=== PATIENT | female | born 1975 | race Caucasian/White ===

== ENCOUNTER → 2016-07-25 | Outpatient (CLI) | payer OTHER ==
[2016-07-25 09:06] LABS: BLOOD UREA NITROGEN 26 mg/dL (7-18)
[2016-07-25 09:19] LABS: ASPARTATE AMINO TRANSFERASE 26 U/L (15-37)
== END | disposition home or self-care (01) ==
LOC: LAB 08:35
PROVIDERS: ATTEND Family Medicine
DX: E03.9 Hypothyroidism, unspecified (principal); E34.8 Other specified endocrine disorders; R79.9 Abnormal finding of blood chemistry, unspecified
CPT/HCPCS: 36415; 80053; 80061; 82306; 82627; 82670; 84144; 84402; 84439; 84443; 84481; 85025

== ENCOUNTER → 2017-09-05 | Outpatient (CLI) | payer OTHER | LOC: CFH 09-03 14:44 | PROVIDERS: ATTEND Internal Medicine | DX: Z12.31 Encounter for screening mammogram for malignant neoplasm of breast (principal) | CPT/HCPCS: 77063; 77067 ==

== ENCOUNTER 2018-09-25 14:45 | Outpatient (CLI) | payer OTHER | END 2018-09-25 23:59 | disposition home or self-care (01) | LOC: CFH 14:45 | PROVIDERS: ATTEND Obstetrics & Gynecology | DX: Z12.31 Encounter for screening mammogram for malignant neoplasm of breast (principal) | CPT/HCPCS: 77063; 77067 ==

== ENCOUNTER 2019-03-08 14:43 | Emergency (ER) | payer OTHER ==
[~2019-03-08] VITALS: Ht 162.6 cm; Wt 63.0 kg
[2019-03-08 14:58] VITALS: BP 120/74
[2019-03-08] MEDS ORDERED: NEOSPORIN OINT. PKT 1 PACKET ONE (15:29)
[2019-03-08] MEDS ORDERED: AMPICILLIN/SULBACTAM 3 GM in SODIUM CHLORIDE 0.9% 100 ML IV ONE (15:30)
== END 2019-03-08 16:44 ==
LOC: ED 16:24
DX: S00.87XA Other superficial bite of other part of head, initial encounter (principal); W54.0XXA Bitten by dog, initial encounter; Y93.89 Activity, other specified; Y92.098 Other place in other non-institutional residence as the place of occurrence of the external cause; Y99.8 Other external cause status
CPT/HCPCS: 96365; 99283; J0295; 96361

== ENCOUNTER 2019-03-19 13:23 | Outpatient (CLI) | payer OTHER | END 2019-03-19 23:59 | disposition home or self-care (01) | LOC: CFH 13:23 | PROVIDERS: ATTEND Student in an Organized Health Care Education/Training Program | DX: R60.0 Localized edema (principal) ==

== ENCOUNTER 2019-03-19 17:20 | Emergency (ER) | payer OTHER ==
[~2019-03-19] VITALS: Ht 162.6 cm; Wt 62.6 kg
[2019-03-19 17:59] VITALS: BP 129/51
[2019-03-19] MEDS ORDERED: DIAZEPAM 5 MG TABLET ONE (19:23)
[2019-03-19] MEDS ORDERED: DIAZEPAM 5 MG TABLET PO ONE (19:30)
--- NOTE | 2019-03-19 19:32 | NUR ---
meds per may. ortho consult. 10/11 pain r leg. plan for ortho boot. as
--- NOTE | 2019-03-19 20:08 | NUR ---
still awaiting ortho consult/boot. as
--- NOTE | 2019-03-19 20:44 | NUR ---
ortho at bedside to fit boot. as
== END 2019-03-19 21:32 | disposition home or self-care (01) ==
LOC: ED 19:08
DX: S86.911A Strain of unspecified muscle(s) and tendon(s) at lower leg level, right leg, initial encounter (principal); S80.11XA Contusion of right lower leg, initial encounter; X58.XXXA Exposure to other specified factors, initial encounter; Y93.89 Activity, other specified; Y92.89 Other specified places as the place of occurrence of the external cause; Y99.8 Other external cause status
CPT/HCPCS: 99283

== ENCOUNTER → 2019-10-30 | Outpatient (CLI) | payer OTHER | END | disposition home or self-care (01) | LOC: CFH 06:33 | PROVIDERS: ATTEND Family Medicine | DX: Z12.31 Encounter for screening mammogram for malignant neoplasm of breast (principal) | CPT/HCPCS: 77063; 77067 ==

== ENCOUNTER 2019-11-01 09:32 | Emergency (ER) | payer OTHER ==
[~2019-11-01] VITALS: Ht 162.6 cm; Wt 65.0 kg
[2019-11-01 09:34] VITALS: BP 104/72
--- NOTE | 2019-11-01 09:49 | NUR ---
Pt brought back from triage with lac to right eyelid. No vision impairment
--- NOTE | 2019-11-01 09:53 | NUR ---
MIGUELANGEL ernandez consult to plastics
--- NOTE | 2019-11-01 10:11 | NUR ---
DC instructions reviewed
== END 2019-11-01 10:04 ==
LOC: ED 10:03
DX: S01.111A Laceration without foreign body of right eyelid and periocular area, initial encounter (principal); X58.XXXA Exposure to other specified factors, initial encounter; Y93.89 Activity, other specified; Y92.098 Other place in other non-institutional residence as the place of occurrence of the external cause; Y99.8 Other external cause status
CPT/HCPCS: 99281; 99283

== ENCOUNTER 2020-01-01 19:16 | Emergency (ER) | payer OTHER ==
[~2020-01-01] VITALS: Ht 162.6 cm; Wt 65.0 kg
[2020-01-01 19:18] VITALS: BP 125/77
[2020-01-01] MEDS ORDERED: DIPH,PERTUSS(ACELL),TET VAC/PF 0.5 ML IM-VACC ONE ×3 (19:30→20:38)
[2020-01-01] MEDS ORDERED: LIDOCAINE-MPF 1%, 5ML INFIL ONE (19:30)
--- NOTE | 2020-01-01 20:01 | NUR ---
PT WALKED BACK FROM LOBBY TO ROOM AT THIS TIME.
[2020-01-01] MEDS ORDERED: L.E.T SOLUTION TP ONE ×2 (20:30→20:33)
[2020-01-01] MEDS ORDERED: AMOXICILLIN/CLAV 875-125MG TABLET PO ONE (21:00)
[2020-01-01] MEDS ORDERED: AMOXICILLIN/CLAV 875-125MG TABLET ONE (21:00)
== END 2020-01-01 22:02 | disposition home or self-care (01) ==
LOC: ED 21:36
DX: S01.551A Open bite of lip, initial encounter (principal); M79.89 Other specified soft tissue disorders; W54.0XXA Bitten by dog, initial encounter; Y93.89 Activity, other specified; Y92.098 Other place in other non-institutional residence as the place of occurrence of the external cause; Y99.8 Other external cause status
CPT/HCPCS: 90471; 90715; 99283